=== PATIENT | male | born 1945 | race Caucasian/White ===

== ENCOUNTER 2021-11-13 17:16 | Emergency (ER) | payer MEDICARE, OTHER ==
--- NOTE | 2021-11-13 17:34 | ED Physician Documentation ---
PD HPI ABD PAIN - Stated complaint Stated Complaint: UNABLE TO URINATE - Chief complaint Chief Complaint: Abd Pain - History obtained from History obtained from: Patient - Additional information Additional information: 76-year-old gentleman who it sounds like he has prostate cancer. Recently had an MRI of his prostate showing "5 lesions." Not on any medications for his prostate. He presents with inability to urinate since noon today. He has not had this problem before. Review of Systems Constitutional: reports: Reviewed and negative Nose: reports: Reviewed and negative Throat: reports: Reviewed and negative Cardiac: reports: Reviewed and negative PD PAST MEDICAL HISTORY - Present Medications Home Medications: Ambulatory Orders Medication Instructions Recorded Confirmed Tamsulosin [Flomax] 0.4 mg PO DAILY #14 cap 11/13/21 - Allergies Allergies/Adverse Reactions: Allergies Allergy/AdvReac Type Severity Reaction Status Date / Time No Known Drug Allergies Allergy Verified 11/13/21 17:26 PD ED PE NORMAL - Vitals Vital signs reviewed: Yes - General General: Alert and oriented X 3, No acute distress - Abdomen Abdomen: Normal bowel sounds, Soft, Other (He has a firm distended and slightly tender bladder) - Neuro Neuro: Alert and oriented X 3, Normal speech Results - Vitals Vitals: Vital Signs - 24 hr 11/13/21 11/13/21 17:23 19:06 Temperature 36.0 C L Heart Rate 108 H 73 Respiratory 16 18 Rate Blood Pressure 171/98 H 130/80 O2 Saturation 98 98 Oxygen O2 Source Room air PD MEDICAL DECISION MAKING - ED course ED course: 76-year-old gentleman presents with acute urinary retention the setting of known prostate cancer. Forte was placed with almost 1 L out and he was counseled on Forte care and appropriate follow-up. Departure - Departure Disposition: 01 Home, Self Care Clinical Impression: Urinary retention Condition: Good Instructions: ED Catheter Care Forte, ED Retention Urinary Male Prescriptions: Tamsulosin [Flomax] 0.4 mg PO DAILY #14 cap Comments: Follow-up with your urologist early next week for reevaluation. Return for new or worsening symptoms. Discharge Date/Time: 11/13/21 19:07
[2021-11-13 19:07] VITALS: BP 130/80
== END 2021-11-13 19:07 | disposition home or self-care (01) ==
LOC: ED 17:16
DX: D49.59 Neoplasm of unspecified behavior of other genitourinary organ (principal); R33.9 Retention of urine, unspecified
CPT/HCPCS: 51702; 99283